=== PATIENT | female | born 1975 | race Caucasian/White ===

== ENCOUNTER 2017-04-02 15:35 | Emergency (ER) | payer BC ==
[2017-04-02] MEDS ORDERED: IPRATROPIUM/ALBUTEROL SULFATE 3 ML NEB NEB ONE (16:06)
[2017-04-02] MEDS ORDERED: predniSONE Tab 20 MG TAB PO ONE (16:07)
[2017-04-02] MEDS ORDERED: diphenhydrAMINE 25 MG CAPSULE PO SCH (16:15)
[2017-04-02 19:16] VITALS: RESP 21; TEMP 97.1
--- NOTE | 2017-04-03 03:51 | PDOC ---
General Adult HPI - General Chief Complaint: Cough / URI Stated Complaint: COUGH/ITCHY THROAT AND EARS SINCE 1044 TODAY Date Seen by Provider: 04/02/17 Time Seen by Provider: 15:45 Source: POSITIVE: Patient, Spouse Exam Limitations: POSITIVE: No limitations Nurse's Notes Reviewed & Considered: Yes - History of Present Illness Initial Comment: The patient is a 41-year-old female. She states that around 11 AM today she began to develop some itchiness behind her ears and in her throat. She also developed a cough, nonproductive. Patient has a history of environmental allergies as well as allergies to Demerol and sulfa. Patient states she has CREST and earlier today had a corticotropin stimulation test at around 8 AM in [place]. Patient has a history of sinusitis and just completed a course of antibiotics for this problem 10 days ago. Mild wheezing. 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 worse with: Nothing, Analgesics, Antacids, Breathing, Defecating, Vomiting, Eating, Exercise, Lying down, Urinating, Palpation, Movement, Rest, Upright Position, Walking, Remaining Still , Other Similar Symptoms Previously: Yes Recent Care Received: REPORTS: Recently Seen, Treated by MD (As above) Any Prior Injuries Related to Current Complaint?: No - Patient Home Medications Home Medications: Home Medications Albuterol Sulfate [Proair Hfa] 2 puff INH Q6H 04/02/17 Cetirizine HCl [Zyrtec] 10 mg PO DAILY 04/02/17 Ergocalciferol (Vitamin D2) [Vitamin D] 400 unit PO DAILY 04/02/17 Hydroxychloroquine Sulfate [Plaquenil] 200 mg PO BID 04/02/17 Multivitamin [Multivitamins] 1 each PO DAILY 04/02/17 Ranitidine HCl [Zantac 75] 75 mg PO DAILY 04/02/17 - Patient Allergies Allergies/Adverse Reactions: Allergies Allergy/AdvReac Type Severity Reaction Status Date / Time meperidine HCl [From Demerol] Allergy RASH Verified 04/02/17 16:07 Sulfa (Sulfonamide Allergy RASH Verified 04/02/17 16:07 Antibiotics) Past Medical History - heen HEENT History: Other (please comment) Additional HEENT History: CHRONIC SINUS ISSUES WITH HISTORY OF 10 SINUS SURGERIES Cardiovascular History: Denies History Respiratory History: Denies History Gastrointestinal History: Other (please comment) Additional Gastrointestinal History: LAP MARY CARMEN x2, CHOLECYSTECTOMY (TOTAL OF 8 ABDOMINAL SURGERIES IN THE PAST) Genitourinary History: Denies History Endocrine History: Other (please comment) Additional Endocrine History: CREST SYNDROME (AUTO IMMUNE DISORDER) Musculoskeletal History: Denies History Prosthesis or Implant: No Neurological History: Denies History Psychiatric History: Denies History History of Sexually Transmitted Diseases: No Female Reproductive History: Other (please comment) Additional Female Reproductive History: COMPLETE HYSTERECTOMY Cancer History: Denies History In Past Year Been Physically Harmed or Verbally Threatened: No (PER PATIENT) History of MDRO: No History of Other Communicable Diseases: No Tobacco Use: Never Smoker Alcohol Use: None Substance Use Type: None Previous Surgical History: Yes Type / Date of Surgery: SINUS SURGERY x10, ABDOMINAL SURGERY x8, COMPLETE HYSTERECTOMY, LAP MARY CARMEN x2, CHOLECYSTECTOMY Anesthesia Reactions: No Malignant Hyperthermia: No Family History of Malignant Hyperthermia: No Significant Family History: No pertinent family hx Past Medical History Reviewed: Reviewed - No Changes ROS - Limitations ROS Limitations: No Limitations Constitution: REPORTS: Denies Symptoms Cardiovascular: REPORTS: Denies Cardiac Symptoms Respiratory: REPORTS: Cough Non Productive, Wheezing Neurological: REPORTS: Denies Neuro Symptoms Gastrointestinal: REPORTS: Denies GI Symptoms Endocrine: REPORTS: Denies Symptoms Musculoskeletal: REPORTS: Denies MS Symptoms Genitourinary: REPORTS: Denies Symptoms Eyes: REPORTS: Denies Symptoms ENT: REPORTS: Other (Itchy throat) Skin: REPORTS: Other (Itchiness anterior throat and upper anterior chest and behind her ears) Lympathic: REPORTS: Denies Lympathic Symptoms Immunologic: POSITIVE: Grass Allergy, Pollen Allergy Psychiatric: POSITIVE: Denies Psych Symptoms General Adult Exam - General Appearance General Appearance: POSITIVE: Alert, Cooperative, No Acute Distress, No Evidence of Trauma - HEENT HEENT: POSITIVE: Head Inspection Nml, Eyes Inspection Nml, Ears Inspection Nml, Oral/Dental Inspect. Nml, Pharynx Inspect. Nml, PERRL, EOMI. NEGATIVE: Nose Inspection Nml (Some nasal congestion) - Pupils Pupil Size: 3 mm: Bilateral (PERRLA) - Neck Neck: POSITIVE: Normal Inspection, Thyroid Normal - Respiratory Respiratory: POSITIVE: Wheezes (Scattered coarse wheezing and rhonchi), Rhonchi - Cardiovascular Cardiovascular: POSITIVE: Regular Rate & Rhythm, No Murmur, No Gallop, PMI Normal Peripheral Pulses: Radial (R): 2+, Radial (L): 2+ - Abdomen Abdomen: Soft: (All Quadrants), Normal Bowel Sounds: (All Quadrants), Denies Tenderness: (All Quadrants), No Splenomegaly: (All Quadrants), No Hepatomegaly: (All Quadrants), No Guarding: (All Quadrants), No Rebound: (All Quadrants), No Palpable Pulse: (All Quadrants), No Palpabale Mass: (All Quadrants), No Distention: (All Quadrants), No Rigidity: (All Quadrants) - Back Back: POSITIVE: Normal Inspection - Skin Skin: POSITIVE: Erythema (Mild erythema anterior neck and upper anterior chest) - Extremities Extremity: Non-Tender: (All Extremities), Normal ROM: (All Extremities), Normal Inspection: (All Extremities) - Neurological / Psychological Neurological: 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 Patient asymptomatic on discharge. Itchiness and erythema have resolved, as has her mild wheezing. Oxygen saturations remained above 96% on room air throughout her stay in the emergency room. Status: POSITIVE: Improved, Re-Examined Antibiotics Given: No - Consult Counseled: POSITIVE: Patient, Family (Assessment), RE: Radiology Results, RE: DX , RE: Need for F/U Patient Care Time - Estimated PCT Patient Care Time (In Minutes): 45 Vital Signs - VS Reviewed Vital Signs Reviewed: Yes Discharge Clinical Impression: Allergic bronchitis Discharge Disposition: Discharged to Home Condition: Stable Patient Instructions Given at Discharge: Acute Bronchitis (ED), Reactive Airways Disease (ED) Additional Instructions: I suspect you're having a reaction to an environmental allergen. Possibly pollens. Your lungs are clear on discharge. Continue your inhaler 2 puffs every 4 hours as necessary. Benadryl, 25 mg, one every 6 hours as necessary. Follow-up with your medical provider in [place]. Return here anytime if condition worsens in anyway whatsoever while you are here. Follow Up With: NONE,NONE [Primary Care Provider] - (Instructions as above. Return here anytime if condition worsens. Follow-up with your primary care provider.)
--- NOTE | 2017-04-04 21:01 | DI ---
PA /LATERAL CHEST X-RAY, 04/02/2017 4:08 PM : Clinical History: Cough. Previous Exam: None at this facility. There is no acute soft tissue or bony abnormality. Heart size is normal. Lungs are clear. Mediastinal structures are normal. There are no pulmonary nodules. Reading: Normal chest x-ray.
== END 2017-04-02 17:45 | disposition home or self-care (01) ==
LOC: ER 15:35
DX: J45.998 Other asthma (principal); R06.2 Wheezing; R05 Cough
CPT/HCPCS: 71020; 94640; 99282; 99283; J7512; J7620; Q0163